=== PATIENT | male | born 1930 | race Caucasian/White ===

== ENCOUNTER 2016-12-10 19:18 | Emergency (ER) | payer OTHER ==
[~2016-12-10] VITALS: Ht 165.1 cm; Wt 70.4 kg
[~2016-12-10 19:18] MED LIST: AMOXIL500 M1 PO; ARICEPT10 MG PO; ARICEPT23 MG PO; ATIVAN0.5 MG PO; Aricept PO; Ativan PO; Augmentin PO; BACTRIM,SEPT1 TABLET PO; BENTYL10 MG PO; CADUET 5/401 TABLET PO; CELEXA20 MG PO; CENTRUM SILV1 TABLET PO; CENTRUM SILVER1 EAC3 PO; COUMADIN2.5 MG; COUMADIN5 MG PO; Colace PO; EFFEXOR25 MG PO; LEVOTHYROXINE150 MCG PO; LEXAPRO10 MG PO; LOPRESSOR50 MG PO; LORAZEPAM0.5 MG PO; NAMENDA10 MG PO; NORVASC2.5 MG PO; NORVASC5 MG PO; Niferex-150,Ferrex 1 PO; OMEPRAZOLE20 M2 PO; PRAVACHOL40 MG PO; PRILOSEC10 MG PO; PROTONIX40 MG PO; RAZADYNE4 MG PO; REGLAN5 MG PO; SENNO8.6 MG PO; TRAZODONE HCL50 MG PO; VITAMIN B12-FO1 EACH PO; VITRUM SENIOR1 EAC2 PO; Vicodin,Norco 5/325 PO; WELLBUTRIN100 MG PO
[2016-12-10 20:22] LABS: HEMATOCRIT 36.1 % (38.0-50.0); MCH 29.5 PG (29.0-34.0); MCHC 32.4 G/DL (30.0-36.0); MCV 90.9 FL (86-99); MEAN PLAT.VOLUME 10.1 uM^3 (9.0-12.4); PLATELET COUNT 180 K/uL (156-360); RBC DIS.WIDTH-CV 13.1 % (11.8-14.6); RBC DIS.WIDTH-SD 42.8 % (39-53); RED BLOOD COUNT 3.97 M/uL (4.00-5.50); WHITE BLOOD COUNT 6.6 K/uL (4.1-10.2)
[2016-12-10 20:33] LABS: CHLORIDE 104 mEq/L (99-109); POTASSIUM 4.5 mEq/L (3.7-5.4); SODIUM 140 mEq/L (136-147)
[2016-12-10 20:34] LABS: GLUCOSE 112 mg/dL (70-99)
[2016-12-10 20:38] LABS: ANION GAP 9 MEQ/L (2-14); GFR ESTIMATE (CALCULATED) > 59 mL/min/
[2016-12-10 20:39] LABS: UREA NITROGEN (BUN) 22 mg/dL (9-23)
[2016-12-10 22:30] VITALS: BP 113/59
== END 2016-12-10 22:33 | disposition home or self-care (01) ==
LOC: EME 19:18
PROVIDERS: Physician Assistant
DX: S63.282A Dislocation of proximal interphalangeal joint of right middle finger, initial encounter (principal); S61.212A Laceration without foreign body of right middle finger without damage to nail, initial encounter; E11.9 Type 2 diabetes mellitus without complications; I10 Essential (primary) hypertension; W19.XXXA Unspecified fall, initial encounter; Z86.73 Personal history of transient ischemic attack (TIA), and cerebral infarction without residual deficits; Z88.0 Allergy status to penicillin
CPT/HCPCS: 71020; 73130; 80048; 85027; 87040; 99281; 99284; J3010